=== PATIENT | male | born 1955 | race Caucasian/White ===

== ENCOUNTER → 2016-04-10 | Outpatient (CLI) | payer OTHER ==
--- NOTE | 2016-04-10 17:16 | DX ---
Lumbar Spine, five views History: Bilateral back pain with left sciatica, M [age] Comparison: None Findings: There are 6 lumbarized vertebral bodies a highest of which will be considered T12 with a hy poplastic right rib. There is a mild lumbar levoscoliosis.. There are large rightward bridging osteop hytes at L1-L2 and L2-L3. There are smaller bilateral osteophytes at L3-L4. Overall mineralization is normal. On the lateral view there is severe narrowing of the L1-L2 disk space where there is margina l disk space sclerosis , endplate irregularity suspicious for remote diskitis, and mild retrolisthesi s. 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 There is se phu narrowing of the L5-S1 disk space, with vacuum phenomenon. There is an old mild compression defo rmity of L1. Overall mineralization is normal. There is mild malalignment of bilateral L5-S1 facet marija ints.. There is no evidence of spondylolisthesis. Impression: Multilevel degenerative change, greatest at L1-L2 and L5-S1. There may been remote diskit is at L1-L2. If left radiculopathy persists, despite a period of conservative therapy, then consider lumbar MRI for further evaluation.
== END ==
LOC: BRMIMAGING 10:58
PROVIDERS: ATTEND Physician Assistant
DX: M51.37 Other intervertebral disc degeneration, lumbosacral region (principal)
CPT/HCPCS: 72100-PO